=== PATIENT | male | born 1960 | race Caucasian/White ===

== ENCOUNTER 2020-11-07 18:28 | Emergency (ER) | payer MEDICARE, MEDICAID, SELFPAY ==
[2020-11-07 19:01] VITALS: BP 182/118; PULSE 78; RESP 18; TEMP 36.7; O2SAT 96; BMI 29.9
[2020-11-07 19:11] VITALS: BP 183/111
[2020-11-07 19:13] VITALS: BP 179/115
--- NOTE | 2020-11-07 19:51 | ED.GENADULT ---
HPI - General Adult General Chief complaint: General Medical Stated complaint: med refill Time Seen by Provider: 11/07/20 19:30 Source: patient Mode of arrival: ambulatory Limitations: no limitations History of Present Illness HPI narrative: Patient with history of hypertension run of his medication for few days asking for a refill unable to get the primary care doctor at this time no headache no chest pain or shortness of breath on arrival patient's blood pressure was 182/118 pulse rate of 78 no nausea no vomiting Related Data Previous Rx's Medication Instructions Recorded chlorthalidone 25 mg tablet 25 mg PO DAILY #30 tab 11/07/20 duloxetine 30 mg capsule,delayed 30 mg PO DAILY #30 cap 11/07/20 release lisinopril 20 mg tablet 20 mg PO DAILY #30 tab 11/07/20 metoprolol tartrate 25 mg tablet 25 mg PO DAILY #60 tab 11/07/20 Allergies Allergy/AdvReac Type Severity Reaction Status Date / Time No Known Allergies Allergy Verified 11/07/20 19:28 Review of Systems Review of Systems: Yes all other systems are reviewed and are negative [facility] Past Medical History Medical History Drug abuse Hypertension Stroke Social History Social History Advance Directives: No Advance Directives Information Provided: No Physical Exam Vital Signs: Vital Signs: Last Vital Signs Temp 98.0 F 11/07/20 19:01 Pulse 69 11/07/20 20:10 Resp 18 11/07/20 19:01 BP 160/103 H 11/07/20 20:10 Pulse Ox 96 11/07/20 19:01 Body Mass Index 29.9 Appearance: Alert. Oriented X3. No acute distress. ENT: Pharynx normal. Oral Mucosa moist Neck: Normal inspection. Neck supple. CVS: Normal heart rate and rhythm. Pulses normal. Respiratory: No respiratory distress. Equal air entry bilateral, no wheezing/rales/rhonchi Abdomen: Soft and nontender. Bowel sounds are present, s Skin: Skin warm and dry. Normal skin color. Normal skin turgor. Extremities: No lower extremity edema. No calf tenderness Neuro: Oriented X 3. Medical Decision Making MDM Narrative Medical decision making narrative: Patient medication refill was given lisinopril 40 mg for high blood pressure no signs of end-organ damage at this time will discharge patient home Discharge Plan Discharge Clinical Impression: Medicine refill Patient Disposition: Home, Self-Care Instructions: Medicine Refill (ED) Additional Instructions: Take your medications as prescribed Prescriptions: New metoprolol tartrate 25 mg tablet 25 mg PO DAILY Qty: 60 RF: 0 lisinopril 20 mg tablet 20 mg PO DAILY Qty: 30 RF: 0 chlorthalidone 25 mg tablet 25 mg PO DAILY Qty: 30 RF: 0 duloxetine 30 mg capsule,delayed release(DR/EC) 30 mg PO DAILY Qty: 30 RF: 0 Interventions: ED Discharge Assessment Last Done: 11/07/20 20:32 Discharge Date/Time: 11/07/20 20:33
[2020-11-07 20:10] VITALS: BP 160/103; PULSE 69
[2020-11-07] MEDS: lisinopriL 40 MG TABLET PO (20:10)
== END 2020-11-07 20:33 | disposition home or self-care (01) ==
PROVIDERS: Emergency Provider Internal Medicine
DX: Z76.0 Encounter for issue of repeat prescription (principal); Z79.899 Other long term (current) drug therapy
CPT/HCPCS: 99283; 99284

== ENCOUNTER 2021-10-14 21:37 | Emergency (ER) | payer MEDICARE, MEDICAID, SELFPAY ==
--- NOTE | ~2021-10-14 | CT_ITS ---
EXAMINATION: CT ABDOMEN AND PELVIS WITHOUT CONTRAST CLINICAL INFORMATION: Bilateral flank pain COMPARISON: None TECHNIQUE: Multidetector volumetric imaging was performed from the superior aspect of the liver through the pubic symphysis. Sagittal and coronal reformatted images were obtained on the technologist's workstation. This CT examination was performed using dose optimization techniques as appropriate, variously including the following: *Automated exposure control *Adjustment of mA and/or kV according to patient size (this includes techniques or standardized protocols for targeted exams where dose is matched to indication/reason for exam; i.e. extremities or head) *Use of iterative reconstruction technique DLP: 741 mGy-cm FINDINGS: LUNG BASES: The visualized lung bases are unremarkable. LIVER, GALLBLADDER, AND BILIARY TREE: The liver is normal in size, shape, and attenuation. No focal hepatic lesion or biliary ductal dilatation is present. The gallbladder is unremarkable with no evidence of radiopaque gallstones, gallbladder wall thickening, or obvious pericholecystic inflammatory changes. PANCREAS: Unremarkable. SPLEEN: Unremarkable. ADRENAL GLANDS: Unremarkable. KIDNEYS AND URETERS: The kidneys are normal in size, shape, and attenuation. No hydronephrosis, hydroureter, or obstructing calculi seen. A few punctate renal calculi are noted bilaterally. No perinephric stranding. Small medial left renal cyst noted; no follow-up recommended. BLADDER: Unremarkable. GASTROINTESTINAL TRACT: Assessment for wall thickening in some segments of the colon is limited due to luminal collapse, though no significant pericolonic stranding is seen to strongly suggest a colitis. No evidence of bowel obstruction. The appendix is unremarkable. No free fluid or free air is seen. ABDOMINAL WALL: No significant hernia is appreciated. LYMPH NODES: Normal. VASCULAR: Scattered atherosclerotic calcifications. PELVIC VISCERA: Unremarkable. OSSEOUS STRUCTURES: Degenerative changes are noted in the spine. Status post left total hip arthroplasty. CT/CT abdomen pelvis wo IV con IMPRESSION: No hydronephrosis or obstructing calculus. A few punctate renal calculi are noted bilaterally.
[2021-10-14 21:54] VITALS: BP 216/131; PULSE 79; RESP 16; TEMP 36.6; O2SAT 98; BMI 33.3
--- NOTE | 2021-10-14 23:26 | ECG_ITS ---
Test Reason : BACK PAIN Blood Pressure : / mmHG Vent. Rate : 066 BPM Atrial Rate : 066 BPM P-R Int : 166 ms QRS Dur : 088 ms QT Int : 404 ms P-R-T Axes : 029 010 -01 degrees QTc Int : 423 ms Normal sinus rhythm Moderate voltage criteria for LVH, may be normal variant ( R in aVL , [place] ) Anteroseptal infarct , age undetermined Abnormal ECG No previous ECGs available Referred By: Malik Trevizo Electronically Signed By:VALERY SORIANO
--- NOTE | 2021-10-14 23:40 | ED_ITS ---
HPI - Abdominal Pain General Chief Complaint: Abdominal Pain Stated Complaint: bilateral kidney pain Time Seen by Provider: 10/14/21 22:59 Source: patient and old records reviewed Mode of arrival: ambulatory Limitations: no limitations History of Present Illness HPI narrative: 61 yo male with hx of HTN ran out of his medications (lisinopril 20mg, still has metoprolol) , renal colic, reports 2 weeks of low back pain has been lifting more at work - denies known trauma. Thinks his urine might be darker than usual. He wasn't sure if it was kidney stones. MD elicited complaint: flank pain Pertinent past history: kidney stones Onset (ago): week(s) (2) Pain Consistency: intermittent Location: L flank and R flank Severity: moderate Quality: aching Radiation: none Migration to: no migration Exacerbating factors: movement Relieving factors: nothing Associated symptoms: denies other symptoms Related Data Previous Rx's Medication Instructions Recorded chlorthalidone 25 mg tablet 25 mg PO DAILY #30 tabs 11/07/20 duloxetine 30 mg capsule,delayed 30 mg PO DAILY #30 caps 11/07/20 release lisinopril 20 mg tablet 20 mg PO DAILY #30 tabs 11/07/20 metoprolol tartrate 25 mg tablet 25 mg PO DAILY #60 tabs 11/07/20 cyclobenzaprine 10 mg tablet 10 mg PO TID PRN muscle spasm #14 10/15/21 tabs lidocaine 4 % topical patch 1 patch topical DAILY PRN pain #30 10/15/21 ea lisinopril 20 mg tablet 20 mg PO DAILY #30 tabs 10/15/21 metoprolol tartrate 25 mg tablet 25 mg PO BID #60 tabs 10/15/21 Allergies Allergy/AdvReac Type Severity Reaction Status Date / Time No Known Allergies Allergy Verified 10/14/21 21:56 Review of Systems Review of Systems Constitutional : No Weight loss, No Fever, No Chills, ENT/Mouth : No Hearing loss, No Ear Pain, No Nasal Congestion, No Sinus Pain, No Hoarseness, No sore throat, No Rhinorrhea, No Swallowing Difficulty Cardiovascular : No Chest Pain, No SOB Respiratory : No Cough, No Dyspnea Gastrointestinal : No Nausea, No Vomiting, No Diarrhea, No abdominal Pain, No Hematochezia, No Melena Genitourinary : No Dysuria, No Urinary Frequency, No Hematuria, No Urinary Incontinence, Musculoskeletal : positive back pain Skin : No Skin Lesions, No rash Neuro : No Weakness, No Numbness, No Paresthesias, no loss of bowel or bladder incontinence, no saddle anesthesia All other systems reviewed and are negative [facility] Past Medical History Attestation statement: The following information was validated with the patient. Medical History Drug abuse Hypertension Stroke Social History Social History (Updated 10/14/21 @ 23:51 by Elma Parkinson DO) Patient Tobacco Use Status: Tobacco use Unknown Advance Directives: No Advance Directives Information Provided: Yes Physical Exam ED Vital Signs: Vital Signs - 24 hr 10/14/21 21:54 10/14/21 23:50 Temperature 97.8 F 97.8 F Pulse Rate 79 66 Respiratory Rate 16 15 Blood Pressure 216/131 H 177/116 H Pulse Oximetry 98 96 Oxygen Delivery Method Room Air Room Air BMI result Body Mass Index 33.3 Appearance: Alert. Oriented X3. No acute distress. Eyes: Pupils equal, round and reactive to light. ENT: Pharynx normal. Neck: Normal inspection. Neck supple. CVS: Normal heart rate and rhythm. Pulses normal. Respiratory: No respiratory distress. Breath sounds normal. Abdomen: Soft and nontender. Skin: Skin warm and dry. Normal skin color. Normal skin turgor. Extremities: No lower extremity edema. No calf ttp Neuro: Oriented X 3. No motor deficit. No sensory deficit. Course Course Course Narrative: CT scan not a source of patient's pain BP down will give oral medications CBC and Chem stable UA negative BP 185 down from 200s asymptomatic has been up for 2 weeks will Rx metoprolol and lisinopril MDM - Abdominal Pain MDM Narrative Medical decision making narrative: 61 yo male with hx of HTN, CVA ran out of his lisinopril 20mg 2 weeks ago presents with HTN did take his metoprolol 25mg, he reports 2 weeks of low back pain no reports of numbness/weakness, b/b issues. He is not using any drugs he takes no blood thinners. Thought it was maybe kidney stones. At this time will obtain labs, UA, CT scan for renal colic was ordered from triage. IV labetalol ordered for BP control - will switch to oral lisinopril once controlled has no signs of end organ involvement Lab Data Result diagrams: 10/14/21 23:58 10/14/21 23:58 Labs: Lab Results 10/14/21 10/14/21 10/15/21 Range/Units 23:58 23:58 00:34 WBC 12.7 H (4.8-10.8) X10*3/uL RBC 4.83 (4.60-5.80) X10*6/uL Hgb 13.5 L (14.0-18.0) g/dl Hct 42.0 (42.0-52.0) % MCV 87.0 (80.0-98.0) fL MCH 28.0 (27.0-33.0) pg MCHC 32.1 (31.0-36.0) g/dl RDW 14.2 (11.0-16.0) % Plt Count 343 (160-400) X10*3/uL MPV 9.9 (9.4-12.4) fL Immature Gran % (Auto) 0.3 (0.0-0.4) % Neut % (Auto) 61.0 (45-73) % Lymph % (Auto) 25.2 (20-40) % [place] % (Auto) 8.1 (2-11) % Eos % (Auto) 4.7 H (0-4) % Baso % (Auto) 0.7 (0-2) % Lymph # (Auto) 3.2 (1.2-4.9) X10*3/uL [place] # (Auto) 1.0 (0.1-1.2) X10*3/uL Eos # (Auto) 0.6 H (0.0-0.4) X10*3/uL Baso # (Auto) 0.1 (0.0-0.2) X10*3/uL Abs Immat Gran (auto) 0.04 H (0.00-0.03) X10*3/uL Absolute Neuts (auto) 7.7 (2.0-8.3) x10*3/uL Absolute Nucleated RBC 0.000 (0.0-0.012) X10*3/uL Nucleated RBC % (auto) 0.0 (0.0-0.2) /100WBC Sodium 144 (135-145) mmol/L Potassium 4.4 (3.3-5.1) mmol/L Chloride 105 (96-108) mmol/L Carbon Dioxide 26 (22-29) mmol/L Anion Gap 17 (12-20) BUN 26 H (9-16) mg/dL Creatinine 1.17 (0.5-1.4) mg/dL Estim Creat Clear Calc 68.6 Estimated GFR > 60 Random Glucose 94 (60-115) mg/dL Calcium 9.1 (8.4-10.2) mg/dL Magnesium 2.2 (1.6-2.6) mg/dL Total Bilirubin 0.3 (0.0-1.0) mg/dL AST 17 (5-37) U/L ALT 14 (0-40) U/L Alkaline Phosphatase 123 H (39-117) U/L Total Protein 7.0 (6.5-8.0) g/dL Albumin 4.0 (3.5-5.0) g/dL Urine Color Yellow Urine Appearance Cloudy Urine pH 5.5 (5.0-9.0) Ur Specific [place] >= 1.030 H (1.005-1.025) Urine Protein 30 (1+) H (Neg-Trace) mg/dL Urine Glucose (UA) Negative (Negative) mg/dL Urine Ketones Trace (Negative) mg/dL Urine Blood Negative (Negative) Urine Nitrite Negative (Negative) Ur Leukocyte Esterase Negative (Negative) Urine RBC 0-2 (0-2) /HPF Urine WBC 0-5 (0-5) /HPF Ur Squamous Epith Cells 0-2 (0-2) /HPF Urine Bacteria None Seen (None Seen) Hyaline Casts 0-2 (0-2) /LPF Urine Opiates Screen (Not Detect) Urine Fentanyl Screen (Not Detect) Ur Barbiturates Screen (Not Detect) Ur Phencyclidine Scrn (Not Detect) Ur Amphetamines Screen (Not Detect) U Benzodiazepines Scrn (Not Detect) Urine Cocaine Screen (Not Detect) U Marijuana (THC) Screen (Not Detect) 10/15/21 Range/Units 00:34 WBC (4.8-10.8) X10*3/uL RBC (4.60-5.80) X10*6/uL Hgb (14.0-18.0) g/dl Hct (42.0-52.0) % MCV (80.0-98.0) fL MCH (27.0-33.0) pg MCHC (31.0-36.0) g/dl RDW (11.0-16.0) % Plt Count (160-400) X10*3/uL MPV (9.4-12.4) fL Immature Gran % (Auto) (0.0-0.4) % Neut % (Auto) (45-73) % Lymph % (Auto) (20-40) % [place] % (Auto) (2-11) % Eos % (Auto) (0-4) % Baso % (Auto) (0-2) % Lymph # (Auto) (1.2-4.9) X10*3/uL [place] # (Auto) (0.1-1.2) X10*3/uL Eos # (Auto) (0.0-0.4) X10*3/uL Baso # (Auto) (0.0-0.2) X10*3/uL Abs Immat Gran (auto) (0.00-0.03) X10*3/uL Absolute Neuts (auto) (2.0-8.3) x10*3/uL Absolute Nucleated RBC (0.0-0.012) X10*3/uL Nucleated RBC % (auto) (0.0-0.2) /100WBC Sodium (135-145) mmol/L Potassium (3.3-5.1) mmol/L Chloride (96-108) mmol/L Carbon Dioxide (22-29) mmol/L Anion Gap (12-20) BUN (9-16) mg/dL Creatinine (0.5-1.4) mg/dL Estim Creat Clear Calc Estimated GFR Random Glucose (60-115) mg/dL Calcium (8.4-10.2) mg/dL Magnesium (1.6-2.6) mg/dL Total Bilirubin (0.0-1.0) mg/dL AST (5-37) U/L ALT (0-40) U/L Alkaline Phosphatase (39-117) U/L Total Protein (6.5-8.0) g/dL Albumin (3.5-5.0) g/dL Urine Color Urine Appearance Urine pH (5.0-9.0) Ur Specific [place] (1.005-1.025) Urine Protein (Neg-Trace) mg/dL Urine Glucose (UA) (Negative) mg/dL Urine Ketones (Negative) mg/dL Urine Blood (Negative) Urine Nitrite (Negative) Ur Leukocyte Esterase (Negative) Urine RBC (0-2) /HPF Urine WBC (0-5) /HPF Ur Squamous Epith Cells (0-2) /HPF Urine Bacteria (None Seen) Hyaline Casts (0-2) /LPF Urine Opiates Screen Not Detected (Not Detect) Urine Fentanyl Screen Not Detected (Not Detect) Ur Barbiturates Screen Not Detected (Not Detect) Ur Phencyclidine Scrn Not Detected (Not Detect) Ur Amphetamines Screen Not Detected (Not Detect) U Benzodiazepines Scrn Not Detected (Not Detect) Urine Cocaine Screen Not Detected (Not Detect) U Marijuana (THC) Screen Not Detected (Not Detect) ECG Data Attestation: I personally reviewed and interpreted this ECG as follows: ECG interpretation date: 10/14/21 ECG interpretation time: 23:48 Interpretation: Rate: 66 Rhythm: NSR [place]: normal , LVH Normal P waves. Normal CRYST[place]. Normal QRS complex. ST T wave : no JANELL, non-specific qTC: normal prior studies: no acute ischemia The study has been interpreted contemporaneously by me. Discharge Plan Discharge Clinical Impression: Bilateral flank pain, Chronic hypertension Patient Disposition: Home, Self-Care Instructions: Chronic Hypertension (ED), Flank Pain (ED) Additional Instructions: return to ED for any worsening symptoms or concerns your CT scan showed small stones in both kidneys this is not the cause of your pain today labs within normal limits Prescriptions: New cyclobenzaprine 10 mg tablet 10 mg PO TID PRN (Reason: muscle spasm) Qty: 14 0RF lidocaine 4 % adhesive patch,medicated 1 patch topical DAILY PRN (Reason: pain) Qty: 30 0RF lisinopril 20 mg tablet 20 mg PO DAILY Qty: 30 1RF metoprolol tartrate 25 mg tablet 25 mg PO BID Qty: 60 1RF No Action metoprolol tartrate 25 mg tablet 25 mg PO DAILY Qty: 60 0RF lisinopril 20 mg tablet 20 mg PO DAILY Qty: 30 0RF chlorthalidone 25 mg tablet 25 mg PO DAILY Qty: 30 0RF duloxetine 30 mg capsule,delayed release(DR/EC) 30 mg PO DAILY Qty: 30 0RF Stand Alone Forms: Work/School Release
[2021-10-14 23:50] VITALS: BP 177/116; PULSE 66; RESP 15; TEMP 36.6; O2SAT 96
[2021-10-15 00:02] LABS: MANUAL DIFF FLAG NO
[2021-10-15 00:04] LABS: Basophils Absolute Auto 0.1 X10*3/uL (0.0-0.2); Basophils Percent Auto 0.7 % (0-2); Eosinophils Absolute Auto 0.6 X10*3/uL (0.0-0.4); Eosinophils Percent Auto 4.7 % (0-4); Hemoglobin 13.5 g/dl (14.0-18.0); Imm Gran Abs Auto 0.04 X10*3/uL (0.00-0.03); Imm Gran Pct Auto 0.3 % (0.0-0.4); Lymphocytes Absolute Auto 3.2 X10*3/uL (1.2-4.9); Lymphocytes Percent Auto 25.2 % (20-40); Mean Corpuscular HGB Conc 32.1 g/dl (31.0-36.0); Mean Platelet Volume 9.9 fL (9.4-12.4); Monocytes Percent Auto 8.1 % (2-11); Neutrophils Absolute Auto 7.7 x10*3/uL (2.0-8.3); Platelet Count 343 X10*3/uL (160-400); Red Blood Count 4.83 X10*6/uL (4.60-5.80); Red Cell Distribution Width 14.2 % (11.0-16.0); White Blood Count 12.7 X10*3/uL (4.8-10.8)
[2021-10-15 00:19] LABS: Alanine Aminotransferase 14 U/L (0-40); Alkaline Phosphatase 123 U/L (39-117); Anion Gap 17 (12-20); Aspartate Amino Transferase 17 U/L (5-37); Bilirubin Total 0.3 mg/dL (0.0-1.0); Blood Urea Nitrogen 26 mg/dL (9-16); Calcium 9.1 mg/dL (8.4-10.2); Carbon Dioxide 26 mmol/L (22-29); Chloride 105 mmol/L (96-108); Creatinine Clr Calc Pharmacy 68.6; Estimated Glomerular Filt Rate > 60; Glucose Random 94 mg/dL (60-115); Magnesium 2.2 mg/dL (1.6-2.6); Potassium 4.4 mmol/L (3.3-5.1); Sodium 144 mmol/L (135-145)
[2021-10-15 00:40] LABS: Appearance Urine Cloudy; Color Urine Yellow; Glucose Urine UA Negative (Negative); Leukocyte Esterase Urine Negative (Negative); Nitrite Urine Negative (Negative); PH 5.5 (5.0-9.0); Specific Gravity - Urine >= 1.030 (1.005-1.025); Urine Blood Negative (Negative); Urine Ketones Trace mg/dL (Negative); Urine Protein 30 (1+) mg/dL (Neg-Trace)
[2021-10-15] MEDS: Cyclobenzaprine HCl 10 MG TABLET PO (00:41)
[2021-10-15 00:42] LABS: Bacteria Urine None Seen (None Seen); Hyaline Casts Urine 0-2 /LPF (0-2); RBC Urine 0-2 /HPF (0-2); Squamous Epithelial Cell Urine 0-2 /HPF (0-2); WBC Urine 0-5 /HPF (0-5)
[2021-10-15] MEDS: lisinopriL 20 MG TABLET PO (00:43)
[2021-10-15] MEDS: Lidocaine 4 % Patch ADH..PATCH 2 PATCH TRANSDERMA (00:43)
--- NOTE | 2021-10-15 00:55 | PC.NURSE ---
Pt bp elevated, Dr Parkinson made aware, Pt alaso c/o low back pain after heavy lifting at work, Pt denies trauma, numbness and tingling.
[2021-10-15 00:59] LABS: Amphetamine Screen Urine Not Detected (Not Detect); Barbiturates, Urine Not Detected (Not Detect); Benzodiazepines Screen Urine Not Detected (Not Detect); Cannabinoid Screen Urine Not Detected (Not Detect); Cocaine Screen Urine Not Detected (Not Detect); Fentanyl, urine Not Detected (Not Detect); Opiate Screen Urine Not Detected (Not Detect); Phencyclidine Screen Urine Not Detected (Not Detect)
== END 2021-10-15 01:28 | disposition home or self-care (01) ==
PROVIDERS: Physician Assistant; Emergency Provider Emergency Medicine
DX: M54.50 Low back pain, unspecified (principal); R10.9 Unspecified abdominal pain; I10 Essential (primary) hypertension; Z79.899 Other long term (current) drug therapy
CPT/HCPCS: 36415; 74176; 80053; 80307; 81001; 83735; 85025; 93005; 99284

== ENCOUNTER 2021-10-22 16:40 | Emergency (ER) | payer MEDICARE, MEDICAID, SELFPAY ==
[2021-10-22 17:06] VITALS: BP 203/122; PULSE 68; RESP 18; TEMP 36.7; O2SAT 95; BMI 32.4
[2021-10-22 17:33] LABS: MANUAL DIFF FLAG NO
[2021-10-22 17:37] LABS: Appearance Urine Clear; Color Urine Yellow; Glucose Urine UA Negative (Negative); Leukocyte Esterase Urine Negative (Negative); Nitrite Urine Negative (Negative); PH 6.5 (5.0-9.0); Specific Gravity - Urine 1.015 (1.005-1.025); Urine Blood Negative (Negative); Urine Ketones 15 mg/dL (Negative); Urine Protein Trace mg/dL (Neg-Trace)
[2021-10-22 17:37] LABS: Basophils Absolute Auto 0.1 X10*3/uL (0.0-0.2); Basophils Percent Auto 0.5 % (0-2); Eosinophils Absolute Auto 0.3 X10*3/uL (0.0-0.4); Eosinophils Percent Auto 2.4 % (0-4); Hematocrit 45.5 % (42.0-52.0); Hemoglobin 15.1 g/dl (14.0-18.0); Imm Gran Abs Auto 0.03 X10*3/uL (0.00-0.03); Imm Gran Pct Auto 0.3 % (0.0-0.4); Lymphocytes Absolute Auto 2.2 X10*3/uL (1.2-4.9); Lymphocytes Percent Auto 18.3 % (20-40); Mean Corpuscular HGB Conc 33.2 g/dl (31.0-36.0); Mean Corpuscular Volume 84.4 fL (80.0-98.0); Mean Platelet Volume 9.7 fL (9.4-12.4); Monocytes Absolute Auto 0.7 X10*3/uL (0.1-1.2); Monocytes Percent Auto 5.5 % (2-11); Neutrophils Absolute Auto 8.7 x10*3/uL (2.0-8.3); Platelet Count 393 X10*3/uL (160-400); Red Blood Count 5.39 X10*6/uL (4.60-5.80); Red Cell Distribution Width 13.4 % (11.0-16.0); White Blood Count 11.9 X10*3/uL (4.8-10.8)
[2021-10-22 17:48] LABS: Anion Gap 15 (12-20); Blood Urea Nitrogen 20 mg/dL (9-16); Calcium 9.9 mg/dL (8.4-10.2); Carbon Dioxide 29 mmol/L (22-29); Chloride 100 mmol/L (96-108); Creatinine Clr Calc Pharmacy 73.4; Estimated Glomerular Filt Rate > 60; Glucose Random 80 mg/dL (60-115); Potassium 4.9 mmol/L (3.3-5.1); Sodium 139 mmol/L (135-145)
[2021-10-22 21:16] VITALS: BP 208/124; PULSE 69; RESP 13; TEMP 36.6; O2SAT 93
--- NOTE | 2021-10-22 21:41 | PC.NURSE ---
pt a&ox3, hypertensive - pt reports taking his evening blood pressure meds prior to coming to the ED, other vss, no new orders at this time.
[2021-10-22 21:51] LABS: Ethanol < 10 mg/dL
--- NOTE | 2021-10-22 21:51 | ED_ITS ---
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 No b/b incontinence no saddle anesthesia. At this time the patient's BP is up b ut reports compliance with medications. Has no PCP but notes since the last ED visit BP has been down to 160. He reports back pain is worse with movement MD elicited complaint: back pain Pertinent past history: prior back pain Onset (ago): day(s) (1) Timing: constant Severity: moderate Similar Symptoms Previously: Yes Quality: aching and throbbing Location: lumbar spine Radiation: none Exacerbating factors: movement Relieving factors: none Context: unknown Associated symptoms: denies other symptoms Work related injury: No Related Data Previous Rx's Medication Instructions Recorded cyclobenzaprine 10 mg tablet 10 mg PO TID PRN muscle spasm #14 10/15/21 tabs lisinopril 20 mg tablet 20 mg PO DAILY #30 tabs 10/15/21 metoprolol tartrate 25 mg tablet 25 mg PO BID #60 tabs 10/15/21 cyclobenzaprine 10 mg tablet 10 mg PO TID PRN muscle spasm #14 10/22/21 tabs lidocaine 4 % topical patch 1 patch topical DAILY PRN pain #30 10/22/21 ea prednisone 20 mg tablet 40 mg PO DAILY 5 days #10 tabs 10/22/21 Allergies Allergy/AdvReac Type Severity Reaction Status Date / Time No Known Allergies Allergy Verified 10/14/21 21:56 Review of Systems Review of Systems: Constitutional : No Weight loss, No Fever, No Chills, ENT/Mouth : No Hearing loss, No Ear Pain, No Nasal Congestion, No Sinus Pain, No Hoarseness, No sore throat, No Rhinorrhea, No Swallowing Difficulty Cardiovascular : No Chest Pain, No SOB Respiratory : No Cough, No Dyspnea Gastrointestinal : No Nausea, No Vomiting, No Diarrhea, No abdominal Pain, No Hematochezia, No Melena Genitourinary : No Dysuria, No Urinary Frequency, No Hematuria, No Urinary Incontinence, Musculoskeletal : positive back pain Skin : No Skin Lesions, No rash Neuro : No Weakness, No Numbness, No Paresthesias, no loss of bowel or bladder incontinence, no saddle anesthesia All other systems reviewed and are negative [facility] Past Medical History Attestation statement: The following information was validated with the patient. Medical History Drug abuse Hypertension Stroke Social History Social History Alcohol intake: never Patient Tobacco Use Status: Current everyday Tobacco user Smoked in Last 30 Days: Yes Use of substances other than those prescribed or required for medical reasons: No Advance Directives: No Physical Exam Vital Signs: Vital Signs: Last Vital Signs Temp 97.8 F 10/22/21 21:16 Pulse 68 10/22/21 22:41 Resp 13 10/22/21 22:41 BP 164/104 H 10/22/21 22:41 Pulse Ox 98 10/22/21 22:41 O2 Del Method 10/22/21 22:41 BMI result Body Mass Index 32.4 Appearance: Alert. Oriented X3. No acute distress. Eyes: Pupils equal, round and reactive to light. ENT: Pharynx normal. Neck: Normal inspection. Neck supple. CVS: Normal heart rate and rhythm. Pulses normal. Respiratory: No respiratory distress. Breath sounds normal. Abdomen: Soft and nontender. Back: R lower lumbar ttp reproduces pain with just gentle palpation Skin: Skin warm and dry. Normal skin color. Normal skin turgor. Extremities: No lower extremity edema. No calf ttp Neuro: Oriented X 3. No motor deficit. No sensory deficit. Course Course Course Narrative: pain resolved and blood pressure resolved - stable for DC at this time MDM - Back Pain/Injury MDM Narrative Medical decision making narrative: 61 yo male with HTN, back pain prior opiate abuse does not use IVDA not on blood thinners here with reproducible R sided low back pain - I do not think he has kidney stones causing pain had punctate stones on CT scan 10 days ago , Cr is st able, UA no blood, his pain is worse with movement and reproduceable. BP likely related to pain - will treat palencia and reassess. No b/b incontinence, no saddle anesthesia no CE symptoms. Lab Data Result diagrams: 10/22/21 17:17 10/22/21 17:17 Labs: Lab Results 10/22/21 10/22/21 10/22/21 Range/Units 17:17 17:17 17:19 WBC 11.9 H (4.8-10.8) X10*3/uL RBC 5.39 (4.60-5.80) X10*6/uL Hgb 15.1 (14.0-18.0) g/dl Hct 45.5 (42.0-52.0) % MCV 84.4 (80.0-98.0) fL MCH 28.0 (27.0-33.0) pg MCHC 33.2 (31.0-36.0) g/dl RDW 13.4 (11.0-16.0) % Plt Count 393 (160-400) X10*3/uL MPV 9.7 (9.4-12.4) fL Immature Gran % (Auto) 0.3 (0.0-0.4) % Neut % (Auto) 73.0 (45-73) % Lymph % (Auto) 18.3 L (20-40) % [place] % (Auto) 5.5 (2-11) % Eos % (Auto) 2.4 (0-4) % Baso % (Auto) 0.5 (0-2) % Lymph # (Auto) 2.2 (1.2-4.9) X10*3/uL [place] # (Auto) 0.7 (0.1-1.2) X10*3/uL Eos # (Auto) 0.3 (0.0-0.4) X10*3/uL Baso # (Auto) 0.1 (0.0-0.2) X10*3/uL Abs Immat Gran (auto) 0.03 (0.00-0.03) X10*3/uL Absolute Neuts (auto) 8.7 H (2.0-8.3) x10*3/uL Absolute Nucleated RBC 0.000 (0.0-0.012) X10*3/uL Nucleated RBC % (auto) 0.0 (0.0-0.2) /100WBC Sodium 139 (135-145) mmol/L Potassium 4.9 (3.3-5.1) mmol/L Chloride 100 (96-108) mmol/L Carbon Dioxide 29 (22-29) mmol/L Anion Gap 15 (12-20) BUN 20 H (9-16) mg/dL Creatinine 1.08 (0.5-1.4) mg/dL Estim Creat Clear Calc 73.4 Estimated GFR > 60 Random Glucose 80 (60-115) mg/dL Calcium 9.9 D (8.4-10.2) mg/dL Urine Color Yellow Urine Appearance Clear Urine pH 6.5 (5.0-9.0) Ur Specific [place] 1.015 (1.005-1.025) Urine Protein Trace (Neg-Trace) mg/dL Urine Glucose (UA) Negative (Negative) mg/dL Urine Ketones 15 (Negative) mg/dL Urine Blood Negative (Negative) Urine Nitrite Negative (Negative) Ur Leukocyte Esterase Negative (Negative) Ethyl Alcohol < 10 mg/dL Discharge Plan Discharge Clinical Impression: Acute lumbar myofascial strain Qualifiers: Encounter type: initial encounter Qualified Code(s): S39.012A - Strain of muscle, fascia and tendon of lower back, initial encounter HTN (hypertension) Qualifiers: Hypertension type: unspecified Qualified Code(s): I10 - Essential (primary) hypertension Patient Disposition: Home, Self-Care Instructions: Hypertension (ED), Back Pain (ED) Additional Instructions: return to ED for any worsening symptoms or concerns take your medications as prescribed Prescriptions: New prednisone 20 mg tablet 40 mg PO DAILY 5 Days Qty: 10 0RF lidocaine 4 % adhesive patch,medicated 1 patch topical DAILY PRN (Reason: pain) Qty: 30 0RF cyclobenzaprine 10 mg tablet 10 mg PO TID PRN (Reason: muscle spasm) Qty: 14 0RF No Action cyclobenzaprine 10 mg tablet 10 mg PO TID PRN (Reason: muscle spasm) Qty: 14 0RF lisinopril 20 mg tablet 20 mg PO DAILY Qty: 30 1RF metoprolol tartrate 25 mg tablet 25 mg PO BID Qty: 60 1RF Stand Alone Forms: Work/School Release
[2021-10-22] MEDS: diazePAM 2 MG TABLET 5 MG PO (22:06)
[2021-10-22] MEDS: HYDROcodone Bit/Acetam 5/325 TABLET 1 TAB PO (22:07)
[2021-10-22] MEDS: Ketorolac Tromethamine 30 MG/ML VIAL IM (22:07)
--- NOTE | 2021-10-22 22:11 | PC.NURSE ---
pt a&ox3, vss, hypertensive - provider aware, pt reporting 8/10 lower back pain, medicated per provider order. no new orders at this time.
[2021-10-22 22:41] VITALS: BP 164/104; PULSE 68; RESP 13; O2SAT 98
== END 2021-10-22 23:13 | disposition home or self-care (01) ==
PROVIDERS: Emergency Provider Emergency Medicine
DX: S39.012A Strain of muscle, fascia and tendon of lower back, initial encounter (principal); X58.XXXA Exposure to other specified factors, initial encounter; I10 Essential (primary) hypertension; F17.200 Nicotine dependence, unspecified, uncomplicated; Z79.899 Other long term (current) drug therapy; Y93.9 Activity, unspecified; Y92.9 Unspecified place or not applicable; Y99.9 Unspecified external cause status
CPT/HCPCS: 36415; 80048; 81003; 82077; 85025; 96372; 99284; J1885